=== PATIENT | female | born 1975 | race Caucasian/White ===

== ENCOUNTER 2025-06-24 09:00 | Day surgery (SDC) | payer OTHER ==
[~2025-06-24 09:00] MED LIST: SYNTHROID125 MCG PO; TAMOXIFEN CITRA10 MG; ZOLADEX3.6 MG
[2025-06-24] MEDS ORDERED: SUGAMMADEX SODIUM 200 MG/2 ML VIAL IV ONE (14:15)
[2025-06-24] MEDS ORDERED: POVIDONE-IODINE SCRUB 118 ML BOTT TOP ONE (14:15)
[2025-06-24] MEDS ORDERED: POVIDONE-IODINE 118 ML BOTT TOP ONE (14:15)
[2025-06-24] MEDS ORDERED: GENTAMICIN SULFATE 40 MG/ML VIAL IR ONE (14:15)
[2025-06-24] MEDS ORDERED: BUPIVACAINE HCL 30 ML VIAL IJ ONE (14:15)
[2025-06-24] MEDS ORDERED: CEFAZOLIN SODIUM 1,000 MG VIAL IJ ONE (14:15)
[2025-06-24] MEDS ORDERED: CLINDAMYCIN PHOSPHATE 150 MG/ML (900mg) IV ONE (14:15)
[2025-06-24] MEDS ORDERED: MORPHINE SULFATE 4 MG/ML VIAL IV ONE ×2 (14:40→15:10)
== END 2025-06-24 16:55 | disposition home or self-care (01) ==
LOC: CIR.AMB 09:00
PROVIDERS: ATTEND Surgery
DX: C50.411 Malignant neoplasm of upper-outer quadrant of right female breast (principal); C77.3 Secondary and unspecified malignant neoplasm of axilla and upper limb lymph nodes; N65.1 Disproportion of reconstructed breast; D48.62 Neoplasm of uncertain behavior of left breast; N60.82 Other benign mammary dysplasias of left breast; R92.1 Mammographic calcification found on diagnostic imaging of breast; Z80.3 Family history of malignant neoplasm of breast; Z90.13 Acquired absence of bilateral breasts and nipples